=== PATIENT | male | born 1950 | race Caucasian/White ===

== ENCOUNTER → 2020-04-21 15:30 | Outpatient (CLI) | payer OTHER, SELFPAY ==
--- NOTE | ~2020-04-21 | XR_ITS ---
EXAMINATION: XR chest 2V DATE: 04/21/2020 15:40 INDICATION: Cough TECHNIQUE: PA and lateral views of the chest are obtained. COMPARISON: 03/16/2017 FINDINGS: The lungs are free of acute opacities. There is no pleural effusion or pneumothorax. The ca rdiomediastinal silhouette is normal. There are bridging osteophytes at multiple levels in the spine, consistent with diffuse idiopathic skeletal hyperostosis (DISH). IMPRESSION: 1. No acute cardiopulmonary abnormality. Reviewed, dictated and finalized at location A. [employer]
== END ==
PROVIDERS: PCP Internal Medicine; Visit Provider Internal Medicine
DX: R05 Cough (principal)
CPT/HCPCS: 71046

== ENCOUNTER → 2021-12-08 11:14 | Outpatient (CLI) | payer OTHER, SELFPAY ==
--- NOTE | ~2021-12-08 | XR_ITS ---
XR shoulder RT min 2V 12/08/2021 11:49 Indication: Right shoulder pain Procedure: 4 views right shoulder Comparison: No prior studies for comparison. 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 No fracture, subluxation or di slocation. No foreign bodies. 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 Reviewed, dictated and finalized at location B. 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
== END ==
PROVIDERS: PCP Internal Medicine; Visit Provider Internal Medicine
DX: M19.011 Primary osteoarthritis, right shoulder (principal)
CPT/HCPCS: 73030

== ENCOUNTER → 2022-09-09 14:26 | Outpatient (CLI) | payer OTHER, SELFPAY ==
--- NOTE | ~2022-09-09 | MR_ITS ---
EXAMINATION: MR shoulder RT wo con DATE: 09/09/2022 15:08 INDICATION: Chronic right shoulder pain TECHNIQUE: Magnetic resonance imaging (MRI) of the right shoulder was performed without intravenous c ontrast. Sequences included axial PD-weighted FS FSE, coronal oblique PD-weighted FS FSE, coronal obl ique T2-weighted FS FSE, sagittal PD-weighted FS FSE, and sagittal T1-weighted SE. COMPARISON: None. FINDINGS: Coracoacromial arch: The acromion undersurface is curved in morphology (type II). Moderate sized anterior subacromial spur at the acromial insertion of the normal coracoacromial ligament. Severe acromioclavicular osteoarthr itis with moderate-sized inferiorly directed marginal osteophytes which remains separate from the und erlying supraspinatus muscle and tendon by a thin intervening fat plane. Rotator cuff: Supraspinatus and infraspinatus tendinopathy with small full-thickness tear at the critical zone of t he conjoined portion of the tendons which measures approximately 1 cm AP which is located approximate ly 1.5 cm from the greater tuberosity footplate. There is a frayed lax appearance to the tendon fiber s lateral to the tear with approximately 3 mm separation of the tear margins. This is superimposed up on a slightly more extensive articular sided tear at the medial margin of which is localized at the l evel of the apex of the humeral head of proximal 1.5 cm more medial from the full-thickness tear defe ct. Moderate subscapularis tendinopathy without tear. The teres minor tendon is normal. Mild fatty at rophy of the infraspinatus muscle belly and mid to posterior deltoid muscle and minimal atrophy of th e supraspinatus and subscapularis muscle bellies relative to the teres minor and remainder of the mus culature of the shoulder girdle. Biceps tendon, glenoid labrum and glenohumeral cartilage: Mild tendinopathy without discrete tear of the intra-articular portion of the long head biceps tendon . There is a relatively clearly defined linear tear at the base of the 10:00-8:30 position of the pos terior glenoid labrum. More irregular degenerative tearing at the posterior superior and posterior in ferior to anteroinferior labrum. Mild glenohumeral osteoarthritis with mild partial-thickness cartila ge loss along the humeral head most prominent posterosuperomedially but without degenerative subchond ral changes. Additional mild partial-thickness cartilage loss along the posterior aspect of the gleno id. Tiny marginal osteophytes about both the glenoid and humeral head. Fluid: Small glenohumeral joint effusion with mild tenosynovitis at the axillary and posterosuperior recess of the joint. No loose osteochondral bodies. There is proportional extension of a small amount of flu id along the long head biceps tendon sheath. Small amount of fluid in the subacromial/subdeltoid burs a and larger collection at the subcoracoid bursa likely representing decompression of fluid in the gl enohumeral joint through the full-thickness rotator cuff tear. Bones: No fracture or pathologic marrow replacing process. Mild cystic and hypertrophic change along the gre ater tuberosity likely related to chronic rotator cuff disease. IMPRESSION: 1. Moderate rotator cuff tendinopathy with small full-thickness tear at the critical zone of the conj oined portion of the supraspinatus and infraspinatus tendons superimposed over a larger but still rel atively small articular sided tear. 2. Mild glenohumeral osteoarthritis with labral tear/degeneration of the posterior and inferior labru m. 3. Severe acromioclavicular osteoarthritis. 4. Mild tendinopathy without tear of the intra-articular long head biceps tendon. Reviewed, dictated and finalized at location A.
== END ==
PROVIDERS: PCP Family Medicine; Visit Provider Orthopaedic Surgery
DX: M19.011 Primary osteoarthritis, right shoulder (principal); M75.101 Unspecified rotator cuff tear or rupture of right shoulder, not specified as traumatic
CPT/HCPCS: 73221

== ENCOUNTER → 2023-02-27 09:47 | Outpatient (CLI) | payer OTHER, SELFPAY ==
--- NOTE | ~2023-02-27 | MR_ITS ---
MRI of the left knee Clinical history: Pain Technique: Coronal proton density and proton density-weighted images, sagittal proton-density and T2 fat-sat images, and axial proton-density fat-saturated images were acquired. Findings: Anterior and posterior cruciate ligaments are intact. Medial collateral ligament and the la teral collateral ligament complex are intact. Popliteus tendon is intact. There is a large radial tear at the posterior to the medial meniscus. No lateral meniscal tear seen. There is mild chondral thinning of the medial femoral condyle. Lateral compartment articular cartilag e is well preserved. There is moderate to high-grade chondromalacia along the patellar apex extending to the medial patellar facet. There are small patellofemoral compartment osteophytes. Extensor mechanism is intact. There is minimal joint effusion. No Louis's cyst. Impression: Large radial tear at the posterior root of the medial meniscus. Chondromalacia patella, as detailed above. Mild chondral thinning in the medial femoral condyle. Reviewed, dictated and finalized at location . ING ATTORNEY Impression: Large radial tear at the posterior root of the medial meniscus. Chondromalacia patella, as detailed above. Mild chondral thinning in the medial femoral condyle.
== END ==
PROVIDERS: PCP Family Medicine; Visit Provider Family Medicine
DX: S83.242A Other tear of medial meniscus, current injury, left knee, initial encounter (principal); M22.42 Chondromalacia patellae, left knee
CPT/HCPCS: 73721

== ENCOUNTER 2023-11-22 12:27 | Outpatient (CLI) | payer OTHER, SELFPAY ==
--- NOTE | ~2023-11-22 | MR_ITS ---
EXAMINATION: MR cervical spine wo con DATE: 11/22/2023 13:14 INDICATION: Cervical spinal fusion. Right arm numbness. TECHNIQUE: Magnetic resonance imaging (MRI) of the cervical spine was performed without intravenous c ontrast. COMPARISON: None FINDINGS: There is 6 degrees levocurvature of cervical spine. Vertebral body heights are normal. Ther e are bridging endplate osteophytes at C2-C3 with disc calcifications. There is moderately decreased disc height at C5-C6 and severely decreased disc height at C6-C7. The spinal cord signal intensity is normal. The following disc levels are specifically discussed: C2-C3: The disc does not extend beyond the endplate margin. There is mild left uncovertebral joint hy pertrophy. There is mild bilateral facet joint hypertrophy. There is mild bilateral neural foraminal stenosis. There is no central canal stenosis. C3-C4: The disc is bulging. There is mild bilateral uncovertebral joint osteoarthritis. There is mode rate right and severe left facet joint osteoarthritis. There is mild bilateral neural foraminal steno sis. There is mild central canal stenosis with ventral indentation of the spinal cord. C4-C5: The disc is bulging. There is mild bilateral uncovertebral joint osteoarthritis. There is alysa re bilateral facet joint osteoarthritis. There is mild bilateral neural foraminal stenosis. There is mild central canal stenosis with ventral indentation of the spinal cord. C5-C6: The disc is bulging. There is severe bilateral uncovertebral joint osteoarthritis. There is mi ld bilateral facet joint osteoarthritis. There is moderate bilateral neural foraminal stenosis. There is moderate central canal stenosis with ventral and dorsal indentation of the spinal cord. C6-C7: The disc is bulging. There is severe bilateral uncovertebral joint osteoarthritis. There is se tori right and moderate left facet joint osteoarthritis. There is moderate bilateral neural foraminal stenosis. There is mild central canal stenosis. C7-T1: The disc does not extend beyond the endplate margin. There is no uncovertebral joint osteoarth ritis. There is severe right and moderate left facet joint osteoarthritis. There is mild bilateral ne ural foraminal stenosis. There is no central canal stenosis. IMPRESSION: 1. Severe cervical spondylosis. Reviewed, dictated and finalized at location A.
== END 2023-11-22 12:28 | disposition home or self-care (01) ==
LOC: GOSHIMG 12:28
PROVIDERS: PCP Hospitalist; Visit Provider Orthopaedic Surgery
DX: M47.812 Spondylosis without myelopathy or radiculopathy, cervical region (principal); R20.0 Anesthesia of skin; R20.2 Paresthesia of skin; S46.011D Strain of muscle(s) and tendon(s) of the rotator cuff of right shoulder, subsequent encounter; M25.511 Pain in right shoulder; G89.29 Other chronic pain; Z98.1 Arthrodesis status
CPT/HCPCS: 72141